=== PATIENT | female | born 1945 | race Caucasian/White ===

== ENCOUNTER 2018-03-27 20:30 | Observation (INO) | payer OTHER, MEDICARE ==
--- NOTE | 2018-03-27 20:45 | ER Document Report ---
ED Neuro Symptoms/Deficit - General Chief Complaint: S/S of Possible Stroke Stated Complaint: HEADACHE Time Seen by Provider: 03/27/18 20:45 Mode of Arrival: Ambulatory Information source: Patient Notes: Patient is a 72-year-old female with a history of bladder cancer status post cystectomy status post renal transplant who presents with new onset difficulty speaking and word finding that started approximately 2:30 PM this afternoon. Patient reports she was reading a book when she had difficulty understanding the words, she informed family who report she was "not speaking right." Symptoms began to worsen prompting patient to be seen in this emergency department. By the time of presentation the patient states her symptoms have dramatically improved, family at bedside also report the patient is almost back to her baseline. She denies head injury, no vision changes, no nausea or vomiting, no gait instability or ataxia. Of note, patient does report new onset left-sided headache which is not usual for the patient. She has no reported history of migraines. TRAVEL OUTSIDE OF THE [place] IN LAST 30 DAYS: No - HPI Patient complains to provider of: Speech Impairment Onset: Other - Around 14:30 Awoke with symptoms: No Symptoms are: Constant Duration: Better Quality of pain: No pain Severity: Moderate Pain Level: Denies Context: None Loss of consciousness: No loss of consciousness Was STROKE ALERT Called: Yes Baseline Cognitive: Alert, oriented X 3 Baseline Gait: Walks w/o assistance Patient Orientation: Person, Place, Time, Events Character of altered mental status: Unchanged from baseline Impaired speech/swallowing: Difficult Vision problem/glaucoma: No Associated symptoms: None Similar symptoms previously: No Recently seen / treated by doctor: No - Related Data Allergies/Adverse Reactions: Iodinated Contrast- Oral and IV Dye Allergy (Verified 03/27/18 20:40) nitrofurantoin [From Macrodantin] Allergy (Verified 03/27/18 20:40) Past Medical History - General Information source: Patient, Relative - Social History Smoking Status: Never Smoker Chew tobacco use (# tins/day): No Frequency of alcohol use: None Drug Abuse: None Lives with: Family Family History: Reviewed & Not Pertinent Patient has suicidal ideation: No Patient has homicidal ideation: No - Past Medical History Cardiac Medical History: Reports: None Pulmonary Medical History: Reports: None EENT Medical History: Reports: None Neurological Medical History: Reports: None Endocrine Medical History: Reports: None Renal/ Medical History: Reports: Hx Renal Insufficiency, Other - Renal transplant Malignancy Medical History: Reports: Other - Bladder cancer GI Medical History: Reports: None Musculoskeletal Medical History: Reports None Skin Medical History: Reports None Psychiatric Medical History: Reports: None Traumatic Medical History: Reports: None Infectious Medical History: Reports: None Past Surgical History: Reports: Other - History of renal transplant - Immunizations Immunizations up to date: Yes Hx Diphtheria, Pertussis, Tetanus Vaccination: Yes History of Influenza Vaccine for 01/2017 - 06/2017 Season: Yes Review of Systems - Review of Systems Constitutional: No symptoms reported EENT: No symptoms reported Cardiovascular: No symptoms reported Respiratory: No symptoms reported Gastrointestinal: No symptoms reported Genitourinary: No symptoms reported Female Genitourinary: No symptoms reported Musculoskeletal: No symptoms reported Skin: No symptoms reported Hematologic/Lymphatic: No symptoms reported Neurological/Psychological: Headaches, Speech impairment -: Yes All other systems reviewed and negative Physical Exam - Vital signs Interpretation: Normal - General General appearance: Appears well, Alert In distress: None - HEENT Head: Normocephalic, Atraumatic Eyes: Normal Pupils: PERRL - Respiratory Respiratory status: No respiratory distress Chest status: Nontender Breath sounds: Normal Chest palpation: Normal - Cardiovascular Rhythm: Regular Heart sounds: Normal auscultation Murmur: No - Abdominal Inspection: Normal Distension: No distension Bowel sounds: Normal Tenderness: Nontender Organomegaly: No organomegaly - Rectal Notes: Deferred - Genitourinary Notes: Deferred - Back Back: Normal, Nontender - Extremities General upper extremity: Normal inspection, Nontender, Normal color, Normal ROM , Normal temperature General lower extremity: Normal inspection, Nontender, Normal color, Normal ROM , Normal temperature, Normal weight bearing. No: Danuta's sign - Neurological Neuro grossly intact: Yes Cognition: Normal Orientation: AAOx4 [place] Coma Scale Eye Opening: Spontaneous Cristhian Coma Scale Verbal: Oriented [place] Coma Scale Motor: Obeys Commands [place] Coma Scale Total: 15 Speech: Expressive aphasia Cranial nerves: Normal Cerebellar coordination: Normal Motor strength normal: LUE, RUE, LLE, RLE Additional motor exam normals: Equal load manager, Dorsiflexion Sensory: Normal - Psychological Associated symptoms: Normal affect, Normal mood - Skin Skin Temperature: Warm Skin Moisture: Dry Skin Color: Normal Course - Re-evaluation Re-evalutation: 03/27/18 22:23 Clinical scenario consistent with likely transient ischemic attack versus complex migraine versus intracranial pathology such as large vessel occlusion versus hemorrhage. Hemorrhage less likely given improvement in symptoms. Will obtain stroke workup and admit to the hospital. Stat head CT was obtained, CTA of the head and neck considered for large vessel occlusion but postponed given rapid improvement. Patient will be admitted after workup is complete. 03/28/18 00:[address] negative for acute hemorrhage. Labs unremarkable or at the patient's baseline. She does have evidence of urinary infection that is nitrite positive , therefore she was given IV Levaquin. She is admitted to the hospital. - Laboratory Result Diagrams: 03/27/18 21:15 03/27/18 21:15 - Diagnostic Test Radiology reviewed: Reports reviewed - EKG Interpretation by Me EKG shows normal: Sinus rhythm Rate: Normal Rhythm: NSR [place]/QRS: No: LBBB P Waves: No: GINA, LAE, Absent, AV Dissociation, Other Heart block present: No: 1st Degree, Mobitz 1, Mobitz 2, CHB (3rd degree block) - Consults Dr. Fowler Time consulted: 00:41 - will admit Consulted provider: will come to ER ED [employer]/Exc Criteria - Date/Time patient last known well: Date/Time: 03/27/18 14:30 - Date/Time patient arrived in ED: _: 03/27/18 20:40 - Inclusion Criteria: 1: Patient presented to ED within 3 hours of acute ischemic stroke symptom onset ? -: No 2: Did baseline CT exclude intracranial hemorrhage and/or other risk factors? -: Yes 3: Is the age of the patient 18 years of age or greater? -: Yes : If any of the above questions are answered "NO" then stop, patient is not a candidate for Alteplase, : If all of the above questions are answered "YES" then continue with Exclusion Criteria. - Exclusion Criteria: 1: Is there evidence of intracranial hemorrhage on baseline CT? 2: Is there suspicion of subarachnoid hemorrhage (even if CT negative)? 3: Is there a history of serious head trauma, recent previous stroke or HI within 3 months? 4: Does the patient have a clinical presentation consistent with HI or post-HI pericarditis? 5: Is there history of intracranial hemorrhage? 6: On repeated measurement is Systolic BP greater than 185mmHg or Diastolic BP greater that 110 mmHg and is aggressive treatment needed to reduce blood pressure to these limits (e.g. constant infusion of an anti-hypertensive)? 7: Did the patient awake with stroke symptoms? 8: Has the patient had a lumbar puncture or an arterial puncture at a non- compressile site within 7 days? 9: With in the last 14 days did the patient have surgery or major trauma? 10: Is the patient or less than 2 weeks? 11: Was there any active bleeding or acute trauma? 12: Does the patient have intracranial neoplasm, arteriovenous malformation or aneurysm? 13: Does the patient have abnormal glucose (less than 50 or greater than 400mg/ dl)? Record glucose in Comment. 14: Patient has rapidly improving symptoms at the time Alteplase is to be Administered. 15: Does the patient have any risks for bleeding, including but not limited to: a.: Current use of Coumadin with PT greater than 15 seconds or INR greater than 1.7. b.: Current use of Pradaxa (Dabigatran). c.: Heparin administereed within the past 48 hours and PTT elevated. d.: Platelet count less than 100,000/mm. e.: Major surgery or serious trauma within 14 days. f.: Gastrointestinal or gynecological urinary bleeding within 14 days. g.: Myocardial Infarction (HI) within 3 months. : If the answer to any of the above questions is "YES" then stop, the patient is not a candidate for Alteplase. : If the answer to all of the above questions is "NO" then the patient may be eligible for the Administration of Alteplase. : If the patient is noted to have seizure activity at onset of Stroke symptoms; Consult Neurologist for further evaluation. - The patient is: -: Included and is eligible to receive Alteplase. *Initiate bed placement at higher level of care* Reviewed risks & benefits of thrombolytic therapy: I have reviewed the risks and benefits of thrombolytic therapy with the patient and/or his/her family. -: Excluded and not eligible to receive Alteplase for the above exclusions. --: Yes - Outside of the window -: Excluded and not eligible to receive Alteplase for other reasons (specify in comments): - Diagnosis of TIA: -: Patient presented with transient symptoms that are now resolved and no other neurologic findings are currently present. List symptoms in comments. -: Yes - Sensory Aphasia -: Patient is NOT a candidate for tPA. -: Yes -: ____(put name in comment) has been consulted for admission and continued evaluation of risk factor assessment. ED NIH Stroke Scale - NIH Stroke Scale *: 1. NIH scale should be completed with appropriate accompanying assessment tools. *: 2. The NIH should reflect what the patient is capable of doing and should not be coached by the clinician. 1a. Level of Consciousness: 0=Alert;keenly responsive -: 1=Drowsy -: 2=Obtunded -: 3=Coma/unresponsive or reflex to noxious stimuli. 1a. Responses: 0 1b. Orientation Questions: a. What month is it? -: b. How old are you? -: 0=Answers both questions correctly. -: 1=Answers one question correctly or patient is intubated or has orotracheal trauma. -: 2=Answers neither question correctly. 1b. Responses: 0 1c. Response to commands: a. Open and close eyes? -: b. Electrolysis Engineer and release hand? -: Credit is given despite weakness. Demonstration of task is permitted. Substitute command if hands cannot be used. -: 0=Performs both tasks correctly -: 1=Performs one task correctly -: 2=Performs neither task correctly 1c. Responses: 0 2. Gaze: Establish eye contact and instruct patient to "Follow my finger" -: 0=Normal -: 1=Partial gaze palsy. Gaze is abnormal in one or both eyes, but where forced deviation or total gaze paresis is not present. -: 2=Forced deviation or total gaze paresis. 2. Responses: 0 3. Visual Askew: Sees fingers in all four quadrants. -: 0=No visual loss. -: 1=Partial hemianopsia. -: 2=Complete hemianopsia. -: 3=Bilateral hemianopsia (including Cortical blindness) 3. Responses: 0 4. Facial Movement: Instruct patient to: -: a. Show me your teeth -: b. Raise your eyebrows -: c. Close your eyes -: d. Smile -: 0=Normal symmetrical movement -: 1=Minor paralysis (flattened nasolabial fold, asymmetry on smiling). -: 2=Partial paralysis (total or near total paralysis of lower face). -: 3=Complete paralysis of upper and lower face 4. Responses: 0 5. Motor functions (left arm): Alternate sides and extend each arm with palms down (90 degrees if sitting or 45 degrees for supine). -: 0=No drift;limb holds for full 10 seconds. -: 1=Drift; limb holds but drifts down before full 10 seconds, but does not hit bed. -: 2=Some effort against gravity; limb cannot get to or maintain position. -: 3=No effort against gravity; limb falls. -: 4=No movement. -: UN=Amputation, joint fusion, explain in comments. 5. Responses (left arm): 0 5. Motor Functions (right arm): Alternate sides and extend each arm with palms down (90 degrees if sitting or 45 degrees for supine). -: 0=No drift;limb holds for full 10 seconds. -: 1=Drift; limb holds but drifts down before full 10 seconds, but does not hit bed. -: 2=Some effort against gravity; limb cannot get to or maintain position. -: 3=No effort against gravity; limb falls. -: 4=No movement. -: UN=Amputation, joint fusion, explain in comments. 5. Responses (right arm): 0 6. Motor Functions (left leg): With patient lying supine, alternate sides and extend each leg (30 degrees always while supine). -: 0=No drift, leg holds position for full 5 seconds -: 1=Drift; leg falls before full 5 seconds but does not hit bed. -: 2=Some effort against gravity, leg falls to bed but some effort against gravity. -: 3=No effort against gravity, leg falls to bed immediately. -: 4=No movement. -: UN=Amputation, joint fusion; explain in comments. 6. Responses (left leg): 0 6. Motor Functions (right leg): With patient lying supine, alternate sides and extend each leg (30 degrees always while supine). -: 0=No drift, leg holds position for full 5 seconds -: 1=Drift; leg falls before full 5 seconds but does not hit bed. -: 2=Some effort against gravity, leg falls to bed but some effort against gravity. -: 3=No effort against gravity, leg falls to bed immediately. -: 4=No movement. -: UN=Amputation, joint fusion; explain in comments. 6. Responses (right leg): 0 7. Limb Ataxia: With eyes open instruct patient to: -: a. "Touch your finger to your nose". -: b. "Touch your heel to your rojas" -: 0=Absent -: 1=Present in one limb. -: 2=Present in two limbs. -: UN=Amputation or joint fusion; explain in comments. 7. Responses: 0 8. Sensory: Test sensation using pinprick or noxious stimuli. Test as many body parts as possible. -: 0=Normal;no sensory loss -: 1=Mile to moderate sensory loss (patient feels pin prick but is less sharp on affected side). -: 2=Severe or total sensory loss. 8. Responses: 0 9. Best Language: Instruct patient to: -: a. "Describe what you see in this picture." -: b. "Name the items in this picture." -: c. "Read these sentences." -: 0=No aphasia, normal -: 1=Mild to moderate aphasia. -: 2=Severe aphasia -: 3=Mute, global aphasia, no usable speech or auditory comprehension. 9. Responses: 0 10. Articulation, Dysarthia: Instruct patient to: -: "Read these words" or "Repeat these words" -: 0=Normal -: 1=Mild to moderate; patient may slur some words but can be understood without difficulty. -: 2=Severe; patients speech so slurred as to be unintelligible in the absence of dysphasia. -: UN=Intubated or other physical barrier, explain in comments. 10. Responses: 1 11. Extinction or inattention: 0=No abnormality -: 1= Visual, tactile, auditory, spatial, or personal inattention or extinction to bilateral simulation in one or the sensory modalities. -: 2=Profound asiya-inattention or asiya-inattention to more than one modality; does not recognize own hand. 11. Responses: 0 Total Score: 1 Discharge - Discharge Clinical Impression: TIA (transient ischemic attack) UTI (urinary tract infection) Qualifiers: Urinary tract infection type: acute cystitis Hematuria presence: without hematuria Qualified Code(s): N30.00 - Acute cystitis without hematuria Disposition: ADMITTED INPATIENT Admitting Provider: Hospitalist Unit Admitted: Medical Floor Referrals: VIDAL HOWARD MD [Primary Care Provider] - Follow up as needed
[2018-03-27 21:26] LABS: ABSOLUTE BASOPHILS # (AUTO) 0.1 10^3/uL (0.0-0.2); ABSOLUTE EOSINOPHILS # (AUTO) 0.1 10^3/uL (0.0-0.6); ABSOLUTE LYMPHOCYTES (AUTO) 1.3 10^3/uL (0.5-4.7); ABSOLUTE MONOCYTES (AUTO) 0.6 10^3/uL (0.1-1.4); ABSOLUTE NEUT (AUTO) 3.9 10^3/uL (1.7-8.2); EOSINOPHILS % (AUTO) 1.1 % (0-6); HEMATOCRIT 31.9 % (36.0-47.0); HEMOGLOBIN 10.8 g/dL (12.0-15.5); LYMPHOCYTES % (AUTO) 21.8 % (13-45); MEAN CORPUSCULAR HEMOGLOBIN 30.6 pg (27.0-33.4); MEAN CORPUSCULAR HGB CONC 33.8 g/dL (32.0-36.0); MEAN CORPUSCULAR VOLUME 90 fl (80-97); MONOCYTES % (AUTO) 10.3 % (3-13); PLATELET COUNT 218 10^3/uL (150-450); RED BLOOD COUNT 3.53 10^6/uL (3.72-5.28); SEGMENTED NEUTROPHILS % (AUTO) 65.8 % (42-78); TOTAL CELLS COUNTED % (AUTO) 100 %; WHITE BLOOD COUNT 5.9 10^3/uL (4.0-10.5)
--- NOTE | 2018-03-27 21:28 | RADIOLOGY REPORT (SQ) ---
EXAM DESCRIPTION: CT HEAD WITHOUT IV CONTRAST COMPLETED DATE/TME: 03/27/2018 00:00 CLINICAL HISTORY: 72 years Female Headache, difficulty speaking, onset 2pm COMPARISON: None. TECHNIQUE: Contiguous axial CT images obtained through the brain without IV contrast. This exam was performed according to our department optimization program which includes automated exposure control, adjustment of the mA and/or kv according to patient size and/or use of iterative reconstruction technique. FINDINGS: The ventricles and sulci are prominent consistent with atrophic changes. No mass lesions. No acute hemorrhage. Atherosclerotic calcifications. No fluid or significant mucosal thickening in the visualized paranasal sinuses. No depressed calvarial fractures. IMPRESSION: No acute intracranial abnormality is identified. Early infarcts are not always visualized with CT. If there is clinical concern for the possibility of acute ischemic change, MRI could be obtained to better evaluate.
[2018-03-27 21:34] LABS: INTERNATIONAL RATION (INR) 1.03; PROTHROMBIN TIME 14.1 SEC (11.4-15.4)
[2018-03-27 21:40] LABS: CHOLESTEROL 166.72 mg/dL (0-200); TRIGLYCERIDES 55 mg/dL (<150)
[2018-03-27 21:41] LABS: ALANINE AMINOTRANSFERASE 14 U/L (9-52); ALBUMIN 3.7 g/dL (3.5-5.0); ALKALINE PHOSPHATASE 72 U/L (38-126); ANION GAP 10 (5-19); ASPARTATE AMINO TRANSFERASE 19 U/L (14-36); BILIRUBIN,DIRECT 0.3 mg/dL (0.0-0.4); BILIRUBIN,TOTAL 0.3 mg/dL (0.2-1.3); BLOOD UREA NITROGEN 39 mg/dL (7-20); CALCIUM 9.7 mg/dL (8.4-10.2); CARBON DIOXIDE 26 mmol/L (22-30); CHLORIDE 105 mmol/L (98-107); CREATINE KINASE 39 U/L (30-135); GLUCOSE 95 mg/dL (75-110); POTASSIUM 4.9 mmol/L (3.6-5.0); SODIUM 140.9 mmol/L (137-145); TOTAL PROTEIN 6.9 g/dL (6.3-8.2)
[2018-03-27 21:50] LABS: DIRECT LDL 94 mg/dL (<100)
[2018-03-27 21:52] LABS: CREATINE KINASE MB 0.44 ng/mL (<4.55); TROPONIN I < 0.012 ng/mL
[2018-03-27 22:21] LABS: APPEARANCE,URINE SLIGHTLY-CLOUDY; BILIRUBIN,URINE NEGATIVE (NEGATIVE); COLOR,URINE YELLOW; GLUCOSE, URINE NEGATIVE (NEGATIVE); KETONES,URINE NEGATIVE (NEGATIVE); LEUKOCYTE ESTERASE,URINE LARGE (NEGATIVE); NITRITE,URINE POSITIVE (NEGATIVE); PROTEIN,URINE NEGATIVE (NEGATIVE); URINE SPECIFIC GRAVITY 1.009; UROBILINOGEN,URINE NEGATIVE mg/dL (<2.0)
[2018-03-28] MEDS ORDERED: LEVOFLOXACIN 750 MG/D5W RTU 750 MG/150 ML RTUPB IV ONE (00:27)
[2018-03-28] MEDS ORDERED: ONDANSETRON 4 MG TAB.RAPDIS PO PRN (01:07)
[2018-03-28] MEDS ORDERED: MAGNESIUM HYDROXIDE SUSP 30 ML UDCUP PO PRN (01:07)
[2018-03-28] MEDS ORDERED: MAG HYDROX/AL HYDROX/SIMETH SUSP 30 ML UDCUP PO PRN (01:07)
[2018-03-28] MEDS ORDERED: ONDANSETRON HCL INJ/PF 4 MG/2 ML SDV IV PRN (01:07)
[2018-03-28] MEDS ORDERED: ASPIRIN 325 MG TABLET PO ONE (04:00)
[2018-03-28] MEDS: LANSOPRAZOLE 30 MG TAB.RAP.DR PO SCH (05:15)
[2018-03-28] MEDS: HEPARIN SOD (PORCINE) 5,000 UNIT/ML 1 ML SYRINGE SUBCUT SCH ×3 (05:16→23:59)
--- NOTE | 2018-03-28 09:34 | PDOC H&P ---
History of Present Illness Admission Date/PCP: 03/28/18 00:48 VIDAL HOWARD MD Patient complains of: Speech difficulties History of Present Illness: IONA PHILIPPE is a 72 year old female who presented to the emergency room approximately 1 hour after the acute onset of slurring of her speech and expressive and receptive aphasia. She admits that she was reading when she suddenly could not understand the words, this bothered her therefore she called her daughter and realized that she was speaking gibberish and her daughter begged her to go to the emergency room which she eventually did. By the time of arrival her symptoms had dramatically improved and within a short period of time the emergency room her symptoms had resolved. She admitted that she had accompanying symptoms of a mild left frontoparietal headache and mild to moderate pain in her left jaw "like a slight toothache". She denied any specific focal weakness or numbness accompanying her symptoms and has no history of recent head injury, recent substance abuse or change in medication. She denies prior similar episodes and has not identified any aggravating or ameliorating factors for her sudden aphasia. Past Medical History Cardiac Medical History: Denies: Coronary Artery Disease, Hyperlipidema, Hypertension Pulmonary Medical History: Denies: Asthma, Chronic Obstructive Pulmonary Disease (COPD), Tuberculosis EENT Medical History: Reports: None Neurological Medical History: Denies: Migraine, Multiple Sclerosis, Seizures Endocrine Medical History: Denies: Diabetes Mellitus Type 1, Diabetes Mellitus Type 2 Renal/ Medical History: Reports: Chronic Kidney Disease, Other - Renal transplant, history of cystectomy for bladder cancer. Denies: Nephrolithiasis Malignancy Medical History: Reports: Other - Bladder cancer GI Medical History: Denies: Cirrhosis, Hepatitis Musculoskeltal Medical History: Denies: Arthritis, Gout Skin Medical History: Denies: Eczema, Psoriasis Psychiatric Medical History: Denies: Alcohol Dependency, Substance Abuse, Tobacco Dependency Traumatic Medical History: Reports: None Hematology: Denies: Anemia, Bleeding Tendencies Infectious Medical History: Reports: None Past Surgical History Past Surgical History: Reports: Other - History of renal transplant, cystectomy and ileal conduit Social History Information Source: Patient Lives with: Family Smoking Status: Never Smoker Frequency of Alcohol Use: None Hx Recreational Drug Use: No Drugs: None Hx Prescription Drug Abuse: No - Advance Directive Resuscitation Status: Full Code Surrogate healthcare decision maker:: Elayne Wooten Family History Family History: Malignancy Parental Family History Reviewed: Yes Children Family History Reviewed: No Sibling(s) Family History Reviewed.: Yes Medication/Allergy Allergies/Adverse Reactions: Iodinated Contrast- Oral and IV Dye Allergy (Verified 03/27/18 20:40) nitrofurantoin [From Macrodantin] Allergy (Verified 03/27/18 20:40) Review of Systems Constitutional: ABSENT: chills, fever(s) Eyes: ABSENT: visual disturbances, other - Ocular pain Ears: ABSENT: hearing changes, other - Ear pain Nose, Mouth, and Throat: PRESENT: as per HPI, headache(s) - Left frontoparietal pain, mouth pain - Left jaw pain. ABSENT: sore throat Cardiovascular: ABSENT: chest pain, dyspnea on exertion, edema, orthropnea, palpitations Respiratory: ABSENT: cough, dyspnea Gastrointestinal: ABSENT: abdominal pain, constipation, diarrhea, nausea, vomiting Genitourinary: PRESENT: other - Uses ileal conduit. ABSENT: hematuria Musculoskeletal: ABSENT: back pain, joint swelling Integumentary: ABSENT: pruritus, rash Neurological: PRESENT: as per HPI, abnormal speech, confusion - Receptive aphasia, paresthesias - Left jaw pain. ABSENT: abnormal gait, abnormal movements, convulsions, dizziness, focal weakness, frequent falls, lack of coordination, memory loss, numbness, syncope, tingling, tremor(s), vertigo, weakness Psychiatric: ABSENT: anxiety, depression Endocrine: ABSENT: cold intolerance, heat intolerance Hematologic/Lymphatic: ABSENT: easy bleeding, easy bruising Allergic/Immunologic: ABSENT: seasonal rhinorrhea Physical Exam Vital Signs: Temp Pulse Resp BP Pulse Ox 97.9 F 70 16 128/64 H 99 03/28/18 08:01 03/28/18 08:01 03/28/18 08:01 03/28/18 08:01 03/28/18 08:01 Intake & Output 03/26/18 03/27/18 03/28/18 23:59 23:59 23:59 Intake Total 150 Balance 150 Weight 52.1 kg General appearance: PRESENT: no acute distress, cooperative Head exam: PRESENT: atraumatic, normocephalic Eye exam: PRESENT: EOMI. ABSENT: nystagmus, scleral icterus Ear exam: PRESENT: normal external ear exam. ABSENT: bleeding Mouth exam: PRESENT: neck supple, other - Oral mucosa moist and intact, dentition in good repair Neck exam: ABSENT: JVD, thyromegaly, tracheal deviation Respiratory exam: PRESENT: clear to auscultation gretchen, symmetrical, unlabored Cardiovascular exam: PRESENT: RRR. ABSENT: clicks, gallop, rubs Pulses: PRESENT: normal radial pulses, normal dorsalis pedis pul Vascular exam: PRESENT: normal capillary refill. ABSENT: pallor GI/Abdominal exam: PRESENT: normal bowel sounds, soft. ABSENT: tenderness Rectal exam: PRESENT: deferred Extremities exam: ABSENT: joint swelling, pedal edema Musculoskeletal exam: PRESENT: full ROM, normal inspection Neurological exam: PRESENT: alert, oriented to person, oriented to place, oriented to time, oriented to situation, CN II-XII grossly intact. ABSENT: motor sensory deficit Psychiatric exam: PRESENT: appropriate affect, normal mood Skin exam: PRESENT: dry, intact, warm. ABSENT: jaundice, rash, urticaria Results Impressions: Head CT 03/27/18 00:00 IMPRESSION: No acute intracranial abnormality is identified. Early infarcts are not always visualized with CT. If there is clinical concern for the possibility of acute ischemic change, MRI could be obtained to better evaluate. Assessment & Plan - Diagnosis (1) TIA (transient ischemic attack) Is this a current diagnosis for this admission?: Yes Plan: Patient will undergo an MRI and other evaluations as appropriate for determining the possible etiologies of her transient neurologic changes. A echocardiogram and carotid Doppler study are ordered. (2) Pyuria Is this a current diagnosis for this admission?: Yes Plan: Urine C&S pending, antibiotic therapy initiated in ER and will continue pending culture results. Follow daily CBC. (3) Bladder cancer Is this a current diagnosis for this admission?: Yes Plan: Consider consultation with oncology if needed. - Time Time Spent: 30 to 50 Minutes Critical Time spent with patient: Less than 15 minutes Medications reviewed and adjusted accordingly: Yes Anticipated discharge: Home - Inpatient Certification Based on my medical assessment, after consideration of the patient's comorbidities, presenting symptoms, or acuity I expect that the services needed warrant INPATIENT care.: No I certify that my determination is in accordance with my understanding of Medicare's requirements for reasonable and necessary INPATIENT services [42 CFR 412.3e].: No Medical Necessity: Need Close Monitoring Due to Risk of Patient Decompensation, Need for Neurological Checks - Plan Summary Plan Summary: Observatoion status.
[2018-03-28] MEDS ORDERED: CEPHALEXIN 500 MG CAPSULE PO SCH (10:00)
[2018-03-28] MEDS: ASPIRIN 81 MG TABLET, ENT COATED PO SCH (11:00)
[2018-03-28] MEDS: DOCUSATE SODIUM 100 MG CAPSULE PO SCH ×2 (11:01→18:08)
[2018-03-28] MEDS ORDERED: NORMAL SALINE 1000 ML 1,000 ML IV PRN (11:24)
--- NOTE | 2018-03-28 12:26 | RADIOLOGY REPORT (SQ) ---
EXAM DESCRIPTION: MRA HEAD WITHOUT; MRI HEAD WITHOUT COMPLETED DATE/TIME: 03/28/2018 10:18 am REASON FOR STUDY: TIA symptoms aphasia COMPARISON: CT brain 03/27/2018 TECHNIQUE: Multiplanar imaging includes non-contrasted T1, T2, FLAIR, and diffusion with ADC map seq uences. Images stored on PACS. [place] MRA exam was acquired with 3D [id number] acquisition. Source data maximum inten sity 3D projection imaging and multiplanar reconstructions were reviewed. LIMITATIONS: None. FINDINGS: ANATOMY: No anomalies. Normal vascular flow voids. Pituitary fossa normal. CSF SPACES: Normal in size and contour. No hemorrhage. CEREBRUM: Sulci and gyri normal in size and contour. Normal white matter signal on FLAIR imaging. No evidence of hemorrhage, mass, or extraaxial fluid collection. POSTERIOR FOSSA: No signal alteration. No hemorrhage. No edema, masses or mass effect. Internal ab tory canals, cerebello-pontine angles, mastoids normal. DIFFUSION IMAGING: Negative for acute or sub-acute infarction. ORBITS: No masses. Globes normal. PARANASAL SINUSES: No fluid levels. Mucosa normal. [place] MRA: No [place] stenosis, vascular malformation, or aneurysm. No other sig nificant finding. IMPRESSION: NORMAL MRI OF THE BRAIN WITHOUT INTRAVENOUS GADOLINIUM CONTRAST. UNREMARKABLE [place] MRA EVIDENCE OF ACUTE STROKE: NO. TECHNICAL DOCUMENTATION: JOB ID: [id number] [employer]- All Rights Reserved Reading location - IP/workstation name: [email or web address]
--- NOTE | 2018-03-28 12:26 | RADIOLOGY REPORT (SQ) ---
EXAM DESCRIPTION: MRA HEAD WITHOUT; MRI HEAD WITHOUT COMPLETED DATE/TIME: 03/28/2018 10:18 am REASON FOR STUDY: TIA symptoms aphasia COMPARISON: CT brain 03/27/2018 TECHNIQUE: Multiplanar imaging includes non-contrasted T1, T2, FLAIR, and diffusion with ADC map seq uences. Images stored on PACS. [place] of [place] MRA exam was acquired with 3D [id number] acquisition. Source data maximum inten sity 3D projection imaging and multiplanar reconstructions were reviewed. LIMITATIONS: None. FINDINGS: ANATOMY: No anomalies. Normal vascular flow voids. Pituitary fossa normal. CSF SPACES: Normal in size and contour. No hemorrhage. CEREBRUM: Sulci and gyri normal in size and contour. Normal white matter signal on FLAIR imaging. No evidence of hemorrhage, mass, or extraaxial fluid collection. POSTERIOR FOSSA: No signal alteration. No hemorrhage. No edema, masses or mass effect. Internal ab tory canals, cerebello-pontine angles, mastoids normal. DIFFUSION IMAGING: Negative for acute or sub-acute infarction. ORBITS: No masses. Globes normal. PARANASAL SINUSES: No fluid levels. Mucosa normal. [place] MRA: No [place] of [place] stenosis, vascular malformation, or aneurysm. No other sig nificant finding. IMPRESSION: NORMAL MRI OF THE BRAIN WITHOUT INTRAVENOUS GADOLINIUM CONTRAST. UNREMARKABLE [place] MRA EVIDENCE OF ACUTE STROKE: NO. TECHNICAL DOCUMENTATION: JOB ID: [id number] [employer]- All Rights Reserved Reading location - IP/workstation name: [email or web address]
[2018-03-28] MEDS: TACROLIMUS ANHYDROUS 0.5 MG CAPSULE PO SCH (18:08)
[2018-03-29] MEDS: HEPARIN SOD (PORCINE) 5,000 UNIT/ML 1 ML SYRINGE SUBCUT SCH (05:12)
[2018-03-29] MEDS: LANSOPRAZOLE 30 MG TAB.RAP.DR PO SCH (05:12)
[2018-03-29 05:26] LABS: ABSOLUTE EOSINOPHILS # (AUTO) 0.1 10^3/uL (0.0-0.6); ABSOLUTE LYMPHOCYTES (AUTO) 1.7 10^3/uL (0.5-4.7); ABSOLUTE MONOCYTES (AUTO) 0.5 10^3/uL (0.1-1.4); ABSOLUTE NEUT (AUTO) 3.1 10^3/uL (1.7-8.2); BASOPHILS % (AUTO) 0.8 % (0-2); EOSINOPHILS % (AUTO) 1.6 % (0-6); HEMATOCRIT 31.1 % (36.0-47.0); HEMOGLOBIN 10.7 g/dL (12.0-15.5); LYMPHOCYTES % (AUTO) 30.9 % (13-45); MEAN CORPUSCULAR HGB CONC 34.3 g/dL (32.0-36.0); MEAN CORPUSCULAR VOLUME 90 fl (80-97); MONOCYTES % (AUTO) 9.4 % (3-13); PLATELET COUNT 204 10^3/uL (150-450); RED BLOOD COUNT 3.45 10^6/uL (3.72-5.28); RED CELL DISTRIBUTION WIDTH 12.9 % (11.5-14.0); SEGMENTED NEUTROPHILS % (AUTO) 57.3 % (42-78); TOTAL CELLS COUNTED % (AUTO) 100 %; WHITE BLOOD COUNT 5.4 10^3/uL (4.0-10.5)
[2018-03-29 05:54] LABS: ANION GAP 10 (5-19); BLOOD UREA NITROGEN 34 mg/dL (7-20); CALCIUM 9.8 mg/dL (8.4-10.2); CARBON DIOXIDE 22 mmol/L (22-30); CHLORIDE 111 mmol/L (98-107); CHOLESTEROL 162.39 mg/dL (0-200); GLUCOSE 99 mg/dL (75-110); POTASSIUM 4.1 mmol/L (3.6-5.0); SODIUM 142.6 mmol/L (137-145); TRIGLYCERIDES 79 mg/dL (<150)
[2018-03-29 06:05] LABS: DIRECT LDL 91 mg/dL (<100)
[2018-03-29 06:15] LABS: FREE T3 2.65 pg/mL (2.77-5.27); FREE T4 (FREE THYROXINE) 1.29 ng/dL (0.78-2.19)
[2018-03-29 06:24] LABS: THYROID STIMULATING HORMONE 1.04 uIU/mL (0.47-4.68)
[2018-03-29] MEDS ORDERED: PREDNISONE 5 MG TABLET PO SCH (08:00)
[2018-03-29] MEDS ORDERED: ASPIRIN 325 MG TABLET PO SCH (10:00)
[2018-03-29] MEDS: ASPIRIN 81 MG TABLET, ENT COATED PO SCH (10:14)
[2018-03-29] MEDS: DOCUSATE SODIUM 100 MG CAPSULE PO SCH (10:14)
[2018-03-29] MEDS: TACROLIMUS ANHYDROUS 0.5 MG CAPSULE PO SCH (10:14)
[2018-03-29 12:02] VITALS: BP 109/85
--- NOTE | 2018-03-29 12:48 | RADIOLOGY REPORT (SQ) ---
EXAM DESCRIPTION: CAROTID DOPPLER COMPLETED DATE/TIME: 03/29/2018 12:14 pm REASON FOR STUDY: TIA COMPARISON: None. TECHNIQUE: Grayscale ultrasound, Doppler velocity and spectra, and color Doppler images acquired of the extra-cranial carotid and vertebral arteries. Images stored on PACS. LIMITATIONS: None. FINDINGS: RIGHT CAROTID CCA Velocities: Within normal limits. ICA Velocities Peak systolic 0.63 m/s. End diastolic 0.23 m/s. Proximal ICA/CCA peak systolic ratio 1.8. Spectra normal. No significant plaque. LEFT CAROTID CCA Velocities: Within normal limits. ICA Velocities Peak systolic 0.61 m/s. End diastolic 0.26 m/s. Proximal ICA/CCA peak systolic ratio 1.2. Spectra normal. No significant plaque. VERTEBRAL ARTERIES: Antegrade flow. Normal waveforms. SUBCLAVIAN ARTERIES: Not imaged. OTHER: No other significant finding. IMPRESSION: NO HEMODYNAMICALLY SIGNIFICANT STENOSIS. COMMENT: Quality ID #[id number]: Velocity criteria are extrapolated from the diameter data as defined by t he Society of Radiologists in Ultrasound Consensus Conference. Radiology 2003: 229; 340-346. TECHNICAL DOCUMENTATION: JOB ID: [id number] [employer]- All Rights Reserved Reading location - IP/workstation name: [email or web address]
--- NOTE | 2018-03-29 12:50 | PDOC DISCHARGE SUMMARY ---
General - Admit/Disc Date/PCP Admission Date/Primary Care Provider: 03/28/18 00:48 VIDAL HOWARD MD Discharge Date: 03/29/18 - Discharge Diagnosis (1) TIA (transient ischemic attack) Is this a current diagnosis for this admission?: Yes (2) Bladder cancer Is this a current diagnosis for this admission?: Yes - Additional Information Resuscitation Status: Full Code Discharge Diet: Cardiac Discharge Activity: Activity As Tolerated Prescriptions: Atorvastatin Calcium [Lipitor 20 mg Tablet] 20 mg PO QHS #30 tablet Home Medications: Prednisone [Deltasone 5 mg Tablet] 5 mg PO QAM 03/28/18 Tacrolimus Anhydrous [Prograf 0.5 mg Capsule] 0.5 mg PO BID 03/28/18 Aspirin [Ecotrin 81 mg EC Tablet] 81 mg PO DAILY tabec 03/29/18 Atorvastatin Calcium [Lipitor 20 mg Tablet] 20 mg PO QHS #30 tablet 03/29/18 History of Present Illness History of Present Illness: IONA PHILIPPE is a 72 year old female who presented to the emergency room approximately 1 hour after the acute onset of slurring of her speech and expressive and receptive aphasia. She admits that she was reading when she suddenly could not understand the words, this bothered her therefore she called her daughter and realized that she was speaking gibberish and her daughter begged her to go to the emergency room which she eventually did. By the time of arrival her symptoms had dramatically improved and within a short period of time the emergency room her symptoms had resolved. She admitted that she had accompanying symptoms of a mild left frontoparietal headache and mild to moderate pain in her left jaw "like a slight toothache". She denied any specific focal weakness or numbness accompanying her symptoms and has no history of recent head injury, recent substance abuse or change in medication. She denies prior similar episodes and has not identified any aggravating or ameliorating factors for her sudden aphasia. Hospital Course Hospital Course: (1) TIA (transient ischemic attack) MRI and MRA of the brain are unremarkable. Echocardiogram and carotid ultrasound are done but pending. Patient is completely asymptomatic and wants to go home. She will see her primary care physician soon after discharge and will have him follow-up on the results. (2) chronic kidney disease. She is status post renal transplant. Kidney function is stable. (3) she has history of bladder cancer that was treated. Physical Exam Vital Signs: Temp Pulse Resp BP Pulse Ox 98.0 F 67 16 109/85 98 03/29/18 12:01 03/29/18 12:01 03/29/18 12:01 03/29/18 12:01 03/29/18 12:01 Intake & Output 03/28/18 03/29/18 03/30/18 06:59 06:59 06:59 Intake Total 150 1095 Balance 150 1095 Weight 114 lb 13.773 oz 112 lb 6.972 oz General appearance: PRESENT: no acute distress, cooperative Eye exam: PRESENT: EOMI Mouth exam: PRESENT: neck supple Neck exam: ABSENT: meningismus Respiratory exam: PRESENT: clear to auscultation gretchen. ABSENT: accessory muscle use Cardiovascular exam: PRESENT: RRR Pulses: PRESENT: normal carotid pulses GI/Abdominal exam: PRESENT: normal bowel sounds, soft. ABSENT: ascites Neurological exam: PRESENT: alert, awake, oriented to person, oriented to place , oriented to time, oriented to situation, CN II-XII grossly intact. ABSENT: aphasic Psychiatric exam: PRESENT: appropriate affect. ABSENT: agitated, anxious, homicidal ideation, suicidal ideation Results Laboratory Results: 03/29/18 05:01 03/29/18 05:01 03/29/18 03/29/18 03/29/18 05:01 05:01 05:01 WBC 5.4 RBC 3.45 L Hgb 10.7 L Hct 31.1 L MCV 90 MCH 31.0 MCHC 34.3 RDW 12.9 Plt Count 204 Seg Neutrophils % 57.3 Lymphocytes % 30.9 Monocytes % 9.4 Eosinophils % 1.6 Basophils % 0.8 Absolute Neutrophils 3.1 Absolute Lymphocytes 1.7 Absolute Monocytes 0.5 Absolute Eosinophils 0.1 Absolute Basophils 0.0 Sodium 142.6 Potassium 4.1 Chloride 111 H Carbon Dioxide 22 Anion Gap 10 BUN 34 H Creatinine 1.49 H Est GFR ( Amer) 42 L Est GFR (Non-Af Amer) 34 L Glucose 99 Calcium 9.8 Magnesium 1.8 Triglycerides 79 Cholesterol 162.39 LDL Cholesterol Direct 91 VLDL Cholesterol 16.0 HDL Cholesterol 63 TSH 1.04 Free T4 1.29 Free T3 pg/mL 2.65 L Impressions: Head CT 03/27/18 00:00 IMPRESSION: No acute intracranial abnormality is identified. Early infarcts are not always visualized with CT. If there is clinical concern for the possibility of acute ischemic change, MRI could be obtained to better evaluate. Brain MRI with MRA 03/28/18 00:00 IMPRESSION: NORMAL MRI OF THE BRAIN WITHOUT INTRAVENOUS GADOLINIUM CONTRAST. UNREMARKABLE [place] MRA EVIDENCE OF ACUTE STROKE: NO. Head MRI 03/28/18 00:00 IMPRESSION: NORMAL MRI OF THE BRAIN WITHOUT INTRAVENOUS GADOLINIUM CONTRAST. UNREMARKABLE [place] MRA EVIDENCE OF ACUTE STROKE: NO. Qualifiers - * PATIENT BEING DISCHARGED WITH ANY OF THE FOLLOWING DIAGNOSIS: No
--- NOTE | 2018-03-29 17:25 | XCELERA REPORT ---
[address] [address] Transthoracic Echocardiogram Report Name: IONA PHILIPPE Age: 72 yrs Gender: Female : 1945 Patient Status: Inpatient Patient Location: [address] [place], [place] [address] Study Date: 03/29/2018 10:27 AM Height: 60 in Weight: 114 lb BSA: 1.5 m2 Procedure: A two-dimensional transthoracic echocardiogram with color flow and Doppler was performed. Study Quality: Fair. Reason For Study: tia: aphasia History: TIA. Ordering Physician: LM WARNER Performed By: Nandini Harkins Interpretation Summary There is no obvious cardiac source of embolus noted on this transthoracic echocardiogram. Follow-up with a MIGUELITO is suggested if cardiac source is still suspected. The left ventricle is normal in size. There is normal left ventricular wall thickness. LV EF is > than 60% Left ventricular systolic function is normal. Doppler measurements suggest impaired left ventricular relaxation, which is associated with grade I/IV or mild diastolic dysfunction The left ventricular wall motion is normal. There is no thrombus. There is no ventricular septal defect visualized. The right ventricle is grossly normal size. The right atrium is normal. The left atrial size is normal. There is no evidence of mitral valve prolapse. There is no vegetation seen on the mitral valve. There is no mitral valve stenosis. There is a trace amount of mitral regurgitation There is no aortic valve stenosis There is no LVOT obstruction. No aortic regurgitation is present. There is no tricuspid stenosis. There is a mild amount of tricuspid regurgitation Right ventricular systolic pressure is normal. RVSP is 25 to 30 mm of Hg , with RA mean of 5 to 10. There is no pulmonic valvular stenosis. There is a trace amount of pulmonic regurgitation The aortic root is normal size. The inferior vena cava appeared normal and decreased > 50% with respiration (RAP 5-10 mmHg) There is no pericardial effusion. There is no obvious cardiac source of embolus noted on this transthoracic echocardiogram. Follow-up with a MIGUELITO is suggested if cardiac source is still suspected MMode/2D Measurements & Calculations RVDd: 3.1 cm LVIDd: 4.7 cm FS: 33.3 % Ao root diam: 2.9 cm IVSd: 0.88 cm LVIDs: 3.1 cm EDV(Teich): 100.0 ml Ao root area: 6.5 cm2 LVPWd: 0.82 cm ESV(Teich): 38.0 ml LA dimension: 2.8 cm EF(Teich): 62.0 % Doppler Measurements & Calculations MV E max weston: MV P1/2t max weston: Ao V2 max: LV V1 max P.2 cm/sec 53.2 cm/sec 91.6 cm/sec 2.7 mmHg MV A max weston: MV P1/2t: 78.6 msec Ao max PG: LV V1 max: 79.1 cm/sec MVA(P1/2t): 2.8 cm2 3.4 mmHg 81.8 cm/sec MV E/A: 0.67 MV dec slope: 198.3 cm/sec2 MV dec time: 0.26 sec PA V2 max: PI end-d weston: TR max weston: MV P1/2t-pr_phl: 50.1 cm/sec 88.0 cm/sec 220.4 cm/sec 78.6 msec PA max PG: TR max P.0 mmHg 19.4 mmHg Left Ventricle The left ventricle is normal in size. There is normal left ventricular wall thickness. LV EF is > than 60%. Left ventricular systolic function is normal. Doppler measurements suggest impaired left ventricular relaxation, which is associated with grade I/IV or mild diastolic dysfunction. The left ventricular wall motion is normal. There is no thrombus. There is no ventricular septal defect visualized. Right Ventricle The right ventricle is grossly normal size. Atria The right atrium is normal. The left atrial size is normal. Mitral Valve There is no evidence of mitral valve prolapse. There is no vegetation seen on the mitral valve. There is no mitral valve stenosis. There is a trace amount of mitral regurgitation. Aortic Valve There is no aortic valvular vegetation. There is no aortic valve stenosis. There is no LVOT obstruction. No aortic regurgitation is present. Tricuspid Valve There is no tricuspid stenosis. There is a mild amount of tricuspid regurgitation. Right ventricular systolic pressure is normal. RVSP is 25 to 30 mm of Hg , with RA mean of 5 to 10. Pulmonic Valve There is no pulmonic valvular stenosis. There is a trace amount of pulmonic regurgitation. Great Vessels The aortic root is normal size. The inferior vena cava appeared normal and decreased > 50% with respiration (RAP 5-10 mmHg). Effusions There is no pericardial effusion. : LM WARNER > Alta Vasques
--- NOTE | 2018-03-30 10:04 | EKG REPORT ---
SEVERITY:- NORMAL ECG - SINUS RHYTHM : Confirmed by: Alta Vasques MD 30-Mar-2018 10:02:29
== END 2018-03-29 15:18 | disposition home or self-care (01) ==
LOC: ER 20:30 → EH 03-28 00:48 → INTOOBSV 03-28 00:48 → 3W 03-28 02:46
PROVIDERS: ADMIT Emergency Medicine; ATTEND Emergency Medicine
DX: G45.9 Transient cerebral ischemic attack, unspecified (principal); C67.9 Malignant neoplasm of bladder, unspecified; N18.9 Chronic kidney disease, unspecified; Z94.0 Kidney transplant status; N30.00 Acute cystitis without hematuria; Z85.51 Personal history of malignant neoplasm of bladder; Z90.6 Acquired absence of other parts of urinary tract; Z98.890 Other specified postprocedural states
CPT/HCPCS: 93005; 99285; 36415 ×2; 84439; 82553; 82962; 82550; 83735; 84443; 85025 ×2; 85610; 85730; 80048; 80053; 81001; 84484; 84481; 83036; 83605; 80061 ×2; 93306; 93880; 70551; 70544; 70450; 93010; J1644 ×2; J7512; J3490; J7030; J1956

== ENCOUNTER 2019-05-30 23:19 | Emergency (ER) | payer OTHER, MEDICARE ==
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
[2019-05-31 01:11] VITALS: BP 110/60
== END 2019-05-31 01:07 | disposition home or self-care (01) ==
LOC: ER 23:19
DX: Z04.1 Encounter for examination and observation following transport accident (principal); Z91.041 Radiographic dye allergy status; Z88.1 Allergy status to other antibiotic agents
CPT/HCPCS: 99284